=== PATIENT | female | born 1960 | race Two or more races ===

== ENCOUNTER 2020-11-02 20:17 | Emergency (ER) | payer BC ==
[~2020-11-02] VITALS: Ht 160 cm; Wt 81.6 kg
[2020-11-02] MEDS ORDERED: IBU600 MG PO (20:41)
== END 2020-11-02 22:46 | disposition home or self-care (01) ==
LOC: ER 20:17
DX: S52.125A Nondisplaced fracture of head of left radius, initial encounter for closed fracture (principal); M12.522 Traumatic arthropathy, left elbow; W18.09XA Striking against other object with subsequent fall, initial encounter; Y93.89 Activity, other specified; Y92.89 Other specified places as the place of occurrence of the external cause; Y99.8 Other external cause status